=== PATIENT | female | born 1960 | race Caucasian/White ===

== ENCOUNTER 2023-04-27 10:04 | Outpatient (CLI) | payer BC | END 2023-04-27 10:05 | disposition home or self-care (01) | LOC: BICCT 10:04 | PROVIDERS: ATTEND Family Medicine | DX: Z12.2 Encounter for screening for malignant neoplasm of respiratory organs (principal); K80.20 Calculus of gallbladder without cholecystitis without obstruction; Z87.891 Personal history of nicotine dependence | CPT/HCPCS: 71271 ==